=== PATIENT | female | born 1935 | race Caucasian/White ===

== ENCOUNTER 2016-08-31 18:10 | Emergency (ER) | payer MEDICARE, OTHER ==
[2016-08-31] MEDS ORDERED: TYLENOL 325 MG PO ONE (18:36)
[2016-08-31] MEDS ORDERED: ATARAX 25 MG PO ONE (18:36)
[2016-08-31] MEDS ORDERED: TYLENOL 325 MG ONE (18:43)
[2016-08-31] MEDS ORDERED: ATARAX 25 MG ONE (18:44)
[2016-08-31 18:48] LABS: BASOPHIL % 0.4 % (0.0-0.4); Granulocytes % 67.7 % (36.0-66.0); Lymphocytes % 20.7 % (24.0-44.0); Mean Cell Volume 97.1 fl (78-100); Mean Corpuscular Hemoglobin 33.4 pg (26-32); Mean Platelet Volume 9.3 fl (6-9.5); Monocytes % 10.2 % (0.0-12.0); Platelet Count 281 K/mm3 (150-450); Red Blood Count 4.16 M/mm3 (4.1-5.4); Red Cell Distribution Width 12.2 % (11.5-14.0); White Blood Count 5.2 K/mm3 (4.0-10.5)
--- NOTE | 2016-08-31 18:50 | ERPHSYRPT ---
- History of Present Illness Time Seen by Provider: 08/31/16 18:14 Source: patient, family (son with whom she lives) Patient Subjective Stated Complaint: headache today along with high blood pressure. Triage Nursing Assessment: ambulated to room with assist. skin w/d, color normal, resp easy. patient c/o headache. had taken b/p at home with some normal and some hypertensive. took a total of four b/p pills today trying to get bp down. patient appears anxious. Physician History: CC: high blood pressure HX: 81 y/o patient of Dr Vee. She has HTN. She is on lisinopril 2.5mg. She has been checking her blood pressure and it is getting higher and higher. She was scared of stroke. She took 3 extra BP pills thruout the day today. She has some off and on throbbing headache. She initially denied any numbness or tingling. However she later told her son she has some off and on bilateral tingling in her face thruout the past week. No focal weakness. No hx of DM, stroke, or heart disease. Symptoms are mild. Severity: mild Allergies/Adverse Reactions: Sulfa (Sulfonamide Antibiotics) Allergy (Intermediate, Verified 08/31/16 18:24) Home Medications: Lisinopril [Zestril] 2.5 mg PO DAILY 08/31/16 [History] Hx Tetanus, Diphtheria Vaccination/Date Given: No Hx Influenza Vaccination/Date Given: Yes Hx Pneumococcal Vaccination/Date Given: Yes - Review of Systems Constitutional: No Fever, No Chills Eyes: No Vision Changes Ears, Nose, & Throat: No Symptoms Respiratory: No Dyspnea Cardiac: No Chest Pain Abdominal/Gastrointestinal: No Abdominal Pain, No Nausea, No Vomiting Musculoskeletal: No Back Pain, No Neck Pain, No Fall, No Injury Skin: No Rash Neurological: Headache, Parasthesia (bilateral face off and on), No Dizziness, No Focal Weakness All Other Systems: Reviewed and Negative - Past Medical History Pertinent Past Medical History: Yes Neurological History: No Pertinent History ENT History: Cataracts Cardiac History: No Pertinent History Respiratory History: No Pertinent History Endocrine Medical History: No Pertinent History Musculoskeletal History: No Pertinent History GI Medical History: No Pertinent History History: No Pertinent History Psycho-Social History: No Pertinent History Female Reproductive Disorders: No Pertinent History - Past Surgical History Past Surgical History: Yes Neuro Surgical History: No Pertinent History Cardiac: No Pertinent History Respiratory: No Pertinent History Gastrointestinal: No Pertinent History Genitourinary: No Pertinent History Musculoskeletal: Other Female Surgical History: Section - Social History Smoking Status: Current every day smoker How long have you smoked: 60 Exposure to second hand smoke: No Drug Use: none Patient Lives Alone: No (lives at home with son) - Nursing Vital Signs Nursing Vital Signs: Initial Vital Signs Temperature 98.1 F 08/31/16 18:16 Pulse Rate 88 08/31/16 18:16 Respiratory Rate 18 08/31/16 18:16 Blood Pressure 148/98 08/31/16 18:16 O2 Sat by Pulse Oximetry 94 L 08/31/16 18:16 Pain Scale Pain Intensity 5 - Physical Exam General Appearance: alert, thin (frail elderly lady who walked in with her son) Eye Exam: PERRL/EOMI Ears, Nose, Throat Exam: moist mucous membranes Neck Exam: normal inspection, non-tender, supple Respiratory Exam: normal breath sounds Cardiovascular Exam: regular rate/rhythm Gastrointestinal/Abdomen Exam: soft, No tenderness, No distention Back Exam: other (mild kyphosis) Extremity Exam: normal inspection, normal range of motion, No pedal edema Neurologic Exam: alert, oriented x 3, cooperative, sensation nml, No motor deficits Skin Exam: warm, dry, No rash SpO2 Interpretation: normal SpO2: 94 Oxygen Delivery: Room Air - Course Nursing assessment & vital signs reviewed: Yes Ordered Tests: Active Orders 24 hr Category Date Time Status EKG-ER Only STAT Care 08/31/16 18:31 Active IV Insertion STAT Care 08/31/16 18:31 Active CBC W DIFF Stat Lab 08/31/16 18:45 Completed CMP Stat Lab 08/31/16 18:45 Completed PROTIME WITH INR Stat Lab 08/31/16 18:45 Completed PTT Stat Lab 08/31/16 18:45 Completed Medication Summary Discontinued Medications Generic Name Dose Route Start Last Admin Trade Name Freq PRN Reason Stop Dose Admin Acetaminophen 650 mg 08/31/16 18:36 08/31/16 18:47 Tylenol 325 Mg PO 08/31/16 18:37 650 mg STAT ONE Administration Acetaminophen Confirm 08/31/16 18:43 Tylenol 325 Mg Administered 08/31/16 18:44 Dose 650 mg .ROUTE .STK-MED ONE Hydroxyzine HCl 25 mg 08/31/16 18:36 08/31/16 18:47 Atarax 25 Mg PO 08/31/16 18:37 25 mg STAT ONE Administration Hydroxyzine HCl Confirm 08/31/16 18:44 Atarax 25 Mg Administered 08/31/16 18:45 Dose 25 mg .ROUTE .K-MED ONE Lab/Rad Data: Laboratory Result Diagrams 08/31/16 18:45 08/31/16 18:45 Laboratory Results 08/31/16 08/31/16 08/31/16 Range/Units 18:45 18:45 18:45 WBC 5.2 (4.0-10.5) K/mm3 RBC 4.16 (4.1-5.4) M/mm3 Hgb 13.9 (12.0-16.0) gm/dl Hct 40.4 (35-47) % MCV 97.1 (78-100) fl MCH 33.4 H (26-32) pg MCHC 34.4 (32-36) g/dl RDW 12.2 (11.5-14.0) % Plt Count 281 (150-450) K/mm3 MPV 9.3 (6-9.5) fl Gran % 67.7 H (36.0-66.0) % Lymphocytes % 20.7 L (24.0-44.0) % Monocytes % 10.2 (0.0-12.0) % Eosinophils % 1.0 (0.00-5.0) % Basophils % 0.4 (0.0-0.4) % Basophils # 0.02 (0-0.4) INR 0.94 (0.8-3.0) APTT 31.9 (25.3-37.0) SECONDS Sodium 130 L (136-145) mEq/L Potassium 4.2 (3.5-5.1) mEq/L Chloride 93 L (98-107) mEq/L Carbon Dioxide 28.3 (21-32) mEq/L Anion Gap 13.0 (5-15) MEQ/L BUN 13 (9-20) mg/dL Creatinine 0.67 (0.55-1.30) mg/dl Estimated GFR > 60 ML/MIN Glucose 95 (70-110) MG/DL Calcium 9.4 (8.5-10.1) mg/dL Total Bilirubin 0.60 (0.2-1.0) mg/dL AST 18 (15-37) U/L ALT 21 (12-78) U/L Alkaline Phosphatase 68 (46-116) U/L Serum Total Protein 7.3 (6.4-8.2) gm/dL Albumin 3.7 (3.4-5.0) g/dL - Progress Progress Note: 08/31/16 18:50 Explained to pt that she should check BP three times a day and have her son check and record it. She should then take the record to Dr Vee. She was advised to take her lisinopril 2.5mg twice a day and keep her follow up with Dr Vee. APAP/hydrozyzine given here. She initially was fine with plan. She then complained of the bilateral facial numbness. Her exam is nonfocal and symptoms vague. With hx of HTN, PICHARDO CT brain and cxr ordered with labs. She then declined the imaging. 08/31/16 19:19 Pt had medication and she feels much better. Ambualted well in the hallway. She is talkative and BP is improved. Discussed instructions. She declines further testing. Counseled pt/family regarding: diagnosis, need for follow-up, rad results - Departure Time of Disposition: 19:20 Departure Disposition: Home Clinical Impression: High blood pressure, Headache, Anxiety Condition: Stable Critical Care Time: No Referrals: JOSE DANIEL LOCKHART [CONSULTING PHYSICIAN] - AMBAR VEE MD [Primary Care Provider] - Instructions: High Blood Pressure, Headache, Prevent Falls Additional Instructions: Check your blood pressure three times a day and record the number to take to Dr Vee next week for recheck. Take your lisinopril twice a day. Take care not to fall. Return for problems or concerns.
[2016-08-31 19:04] LABS: INR 0.94 (0.8-3.0); PROTIME 10.6 SECONDS (9.95-12.35)
[2016-08-31 19:06] LABS: PTT 31.9 SECONDS (25.3-37.0)
[2016-08-31 19:12] LABS: ALBUMIN 3.7 g/dL (3.4-5.0); ALKALINE PHOSPHATASE 68 U/L (46-116); BLOOD UREA NITROGEN 13 mg/dL (9-20); CHLORIDE 93 mEq/L (98-107); Carbon Dioxide 28.3 mEq/L (21-32); Glucose 95 MG/DL (70-110); Potassium 4.2 mEq/L (3.5-5.1); SGOT/AST 18 U/L (15-37); SGPT/ALT 21 U/L (12-78); SODIUM 130 mEq/L (136-145); Total Protein 7.3 gm/dL (6.4-8.2)
[2016-08-31 19:23] VITALS: BP 134/68; PULSE 68; O2SAT 97
== END 2016-08-31 19:23 | disposition home or self-care (01) ==
LOC: SUPCPDRO 18:10 → ED 18:10
DX: I10 Essential (primary) hypertension (principal); R51 Headache; F41.9 Anxiety disorder, unspecified
CPT/HCPCS: 36415; 80053; 85025; 85610; 85730; 99284; A9270-GY

== ENCOUNTER 2019-10-31 15:29 | Emergency (ER) | payer MEDICARE, OTHER ==
--- NOTE | 2019-10-31 16:02 | ERPHSYRPT ---
- History of Present Illness Time Seen by Provider: 10/31/19 15:59 Source: patient, family Exam Limitations: no limitations Patient Subjective Stated Complaint: pt here for constipation, she is unsure of last BM, she has tried laxative but unsure of what she has taken Triage Nursing Assessment: pt alert, resp easy, skin w/d/p. face mask on place, abd soft Physician History: pt here for constipation, she is unsure of last BM, she has tried laxative but unsure of what she has taken. According to son, Last bowel movement was 2 weeks ago Associated Symptoms: denies symptoms Allergies/Adverse Reactions: Sulfa (Sulfonamide Antibiotics) Allergy (Intermediate, Verified 10/31/19 15:41) Home Medications: lisinopriL [Zestril] 2.5 mg PO DAILY 08/31/16 [History] Hx Tetanus, Diphtheria Vaccination/Date Given: No Hx Influenza Vaccination/Date Given: Yes Hx Pneumococcal Vaccination/Date Given: Yes Immunizations Up to Date: Yes Travel Risk - International Travel Have you traveled outside of the country in past 3 weeks: No - Coronavirus Screening Are you exhibiting any of the following symptoms?: No Close contact with a COVID-19 positive Pt in past 14-21 Days: No - Review of Systems Constitutional: No Symptoms Eyes: No Symptoms Ears, Nose, & Throat: No Symptoms Respiratory: No Symptoms Cardiac: No Symptoms Abdominal/Gastrointestinal: Constipation Genitourinary Symptoms: No Symptoms Musculoskeletal: No Symptoms - Past Medical History Pertinent Past Medical History: Yes Neurological History: No Pertinent History ENT History: Cataracts Cardiac History: No Pertinent History Respiratory History: No Pertinent History Endocrine Medical History: No Pertinent History Musculoskeletal History: No Pertinent History GI Medical History: No Pertinent History History: No Pertinent History Psycho-Social History: No Pertinent History Female Reproductive Disorders: No Pertinent History - Past Surgical History Past Surgical History: Yes Neuro Surgical History: No Pertinent History Cardiac: No Pertinent History Respiratory: No Pertinent History Gastrointestinal: No Pertinent History Genitourinary: No Pertinent History Musculoskeletal: Other Female Surgical History: Section Other Surgical History: 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 - Social History Smoking Status: Current every day smoker How long have you smoked: 60 Exposure to second hand smoke: No Drug Use: none Patient Lives Alone: No (lives at home with son) - Female History Hx Last Menstrual Period: psot Hx Now: No - Nursing Vital Signs Nursing Vital Signs: Initial Vital Signs Temperature 97.6 F 10/31/19 15:34 Pulse Rate 103 H 10/31/19 15:34 Respiratory Rate 18 10/31/19 15:34 Blood Pressure 112/64 10/31/19 15:34 O2 Sat by Pulse Oximetry 94 L 10/31/19 15:34 Pain Scale Pain Intensity 3 - Physical Exam General Appearance: no apparent distress Eye Exam: PERRL/EOMI Ears, Nose, Throat Exam: normal ENT inspection Neck Exam: normal inspection Respiratory Exam: normal breath sounds Cardiovascular Exam: regular rate/rhythm Gastrointestinal/Abdomen Exam: soft, normal bowel sounds Pelvic Exam: not done Rectal Exam: deferred Back Exam: normal inspection Extremity Exam: normal inspection Neurologic Exam: alert, oriented x 3 SpO2: 94 - Course Nursing assessment & vital signs reviewed: Yes - Radiology Exams Abdomen X-ray Interpretation: Reviewed by me, Negative (constipated bowel) Ordered Tests: Active Orders 24 hr Category Date Time Status KUB Stat Exams 10/31/19 Ordered Medication Summary Discontinued Medications Generic Name Dose Route Start Last Admin Trade Name Juan PRN Reason Stop Dose Admin Magnesium Citrate 150 ml 10/31/19 16:29 Citroma 296 Ml PO 10/31/19 16:30 1XONLY ONE - Progress Progress: improved Progress Note: 10/31/19 16:34 Soap suds enema and 150 ml magnesium citrate given, patient has some good results with this treatment. Counseled pt/family regarding: diagnosis, need for follow-up, rad results - Departure Departure Disposition: Home Clinical Impression: Constipation by delayed colonic transit Condition: Stable Critical Care Time: No Referrals: AMBAR VEE MD [Primary Care Provider] - Follow Up with PCP/3 days Instructions: Constipation, Adult (DC) Additional Instructions: Discharge/Care Plan JAMA LANE was seen on 10/31/19 in the Emergency Room. The patient was counseled regarding Diagnosis,Lab results, Imaging studies, need for follow up and when to return to the Emergency Room. Prescriptions given: Discharge Note I have spoken with the patient and/or caregivers. I have explained the patient's condition, diagnosis and treatment plan based on the information available to me at this time. I have answered the patient's and/or caregiver's questions and ad dressed any concerns. The patient and/or caregivers have as good understanding of the patient's diagnosis, condition and treatment plan as can be expected at this point. The vital signs have been stable. The patient's condition is stable and appropriate for discharge from the emergency department. The patient will pursue further outpatient evaluation with the primary care physician or other designated or consulting physician as outlined in the discharge instructions. The patient and/or caregivers are agreeable to this plan of care and follow-up instructions have been explained in detail. The patient and/or caregivers have received these instruction. The patient/and or caregivers are aware that any significant change in condition or worsening of symptoms should prompt an immediate return to this or the closest emergency department or call 911. [address] was seen on 10/31/19 n the Emergency Room. At that time you were treated for an emergent condition, during your visit Laboratory, Radiology and/or other procedures may have been ordered. It is very important that you follow-up with your Primary Care Physician AMBAR VEE within the next 24-48 hours to review your Emergency Room visit and the final results of testing that was ordered. Some test results such as Urine Cultures, Blood Cultures, and other cultures if ordered will not be finalized for 24-48 hours. If you do not have a Primary Care Provider please call the medical records department at [phone] ext [phone] to obtain a copy of your results or you may sign into our patient portal to obtain these results by visiting us @ [email or web address] and completing the following steps: 1. Click on the Patient Portal link 2. Click the Patient Self Enrollment Link to complete the enrollment form and entering your 3. Once the enrollment form is completed you will receive an email with a tempor dale ID and password at the email address you provided. 4. Next choose a user name and password. Your user name must be at least 4 characters long and your password must be at least 4 characters long. 5. Choose a security question from the list and provide your answer to the question. If you already have signed into the Health Portal you may access your Health Care Information 02/09 by the following steps: 1. Login to our website @ [email or web address] 2. Enter your original user name and password. FAQS The [facility] Health Portal is an online tool that contains your Lab Results, Radiology Reports, Visit History, Discharge Instructions and Health Summary Lab and Radiology Results will not be available for 72 hours on the portal. The Portal is a secure site, passwords are encryted and URLs are re-written so they cannot be copied and pasted. You and authorized family members are the only ones who can access your Portal. Also there is a timeout feature that protects your information if you leave the Portal page open. If you have technical difficulty please use the Contact Us link on the page this will allow you to submit any questions you have regarding the Portal or you may contact the Medical Record Department at [phone] ext [phone]. Prescriptions: Linaclotide [Linzess] 72 mcg PO BID #20 capsule
[2019-10-31] MEDS ORDERED: CITROMA 296 ML PO ONE (16:29)
[2019-10-31] MEDS ORDERED: CITROMA 296 ML ONE (16:34)
[2019-10-31 17:00] VITALS: BP 120/50; PULSE 78; O2SAT 98
--- NOTE | 2019-10-31 19:18 | XRAY ---
Indication: Constipation. Comparison: None KUB nonacute and nonobstructed with mild rectal fecal debris. Heavy scattered vascular calcifications. Osseous structures intact with osteopenia, moderate multilevel degenerative spondylosis, and mild dextroscoliosis centered at L3. Lung bases are clear. Impression: Nonacute KUB with chronic features.
== END 2019-10-31 17:00 | disposition home or self-care (01) ==
LOC: ED 15:29
DX: K59.01 Slow transit constipation (principal)
CPT/HCPCS: 74018; 99283; A9270-GY

== ENCOUNTER 2019-11-03 18:59 | Observation (INO) | payer MEDICARE, OTHER ==
--- NOTE | 2019-11-03 19:06 | ERPHSYRPT ---
- History of Present Illness Time Seen by Provider: 11/03/19 19:06 Historian: patient Exam Limitations: no limitations Physician History: This is an 84-year-old white female patient of Dr. Vee returns to the emergency department with complaint of constipation for 2 to 3 weeks. Patient was seen on 10/31/2019 in this emergency department. The x-ray reading from the emergency room physician at that time said constipated bowel picture. Patient is also to be reported as having good results with soapsuds enema. Patient states she has had no further bowel movements in a few days. Patient's son discussed with the mixed signal design engineer in the emergency department that he demands that his mother be admitted for evaluation and management. Patient denies cough, she denies chest pain, she denies fever, she denies flulike symptoms. Timing/Duration: week(s) (2-3) Quality: aching Abdominal Pain Onset Location: generalized abdomen Severity of Pain-Max: moderate Severity of Pain-Current: mild Modifying Factors: Improves With: other (Constipation) Associated Symptoms: other (Constipation), No diarrhea Previous symptoms: same symptoms as today Allergies/Adverse Reactions: Sulfa (Sulfonamide Antibiotics) Allergy (Intermediate, Verified 11/03/19 19:24) Home Medications: lisinopriL [Zestril] 2.5 mg PO DAILY 08/31/16 [History] Hx Tetanus, Diphtheria Vaccination/Date Given: No Hx Influenza Vaccination/Date Given: Yes Hx Pneumococcal Vaccination/Date Given: Yes Travel Risk - International Travel Have you traveled outside of the country in past 3 weeks: No - Coronavirus Screening Are you exhibiting any of the following symptoms?: No Close contact with a COVID-19 positive Pt in past 14-21 Days: No - Past Medical History Pertinent Past Medical History: Yes Neurological History: No Pertinent History ENT History: Cataracts Cardiac History: No Pertinent History Respiratory History: No Pertinent History Endocrine Medical History: No Pertinent History Musculoskeletal History: No Pertinent History GI Medical History: No Pertinent History History: No Pertinent History Psycho-Social History: No Pertinent History Female Reproductive Disorders: No Pertinent History - Past Surgical History Past Surgical History: Yes Neuro Surgical History: No Pertinent History Cardiac: No Pertinent History Respiratory: No Pertinent History Gastrointestinal: No Pertinent History Genitourinary: No Pertinent History Musculoskeletal: Other Female Surgical History: Section Other Surgical History: 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 - Social History Smoking Status: Current every day smoker How long have you smoked: 60 Exposure to second hand smoke: No Drug Use: none Patient Lives Alone: No (lives at home with son) - Nursing Vital Signs Nursing Vital Signs: Initial Vital Signs Temperature 98.0 F 11/03/19 19:11 Pulse Rate 74 11/03/19 19:11 Respiratory Rate 20 11/03/19 19:11 Blood Pressure 139/76 11/03/19 19:11 O2 Sat by Pulse Oximetry 97 11/03/19 19:11 Pain Scale Pain Intensity 2 - Physical Exam General Appearance: no apparent distress, alert Eye Exam: PERRL/EOMI Ears, Nose, Throat Exam: normal ENT inspection, moist mucous membranes Neck Exam: normal inspection, non-tender, supple, full range of motion Respiratory Exam: normal breath sounds, lungs clear, airway intact, No chest tenderness, No respiratory distress Cardiovascular Exam: regular rate/rhythm, normal heart sounds, normal peripheral pulses Gastrointestinal/Abdomen Exam: soft, normal bowel sounds, No tenderness, No guarding Pelvic Exam: not done Rectal Exam: not done Back Exam: normal inspection, normal range of motion, No CVA tenderness, No vertebral tenderness Extremity Exam: normal inspection, normal range of motion, pelvis stable Neurologic Exam: alert, oriented x 3, cooperative, cnc mill and lathe operator II-XII nml as tested, normal mood/affect, sensation nml Skin Exam: normal color, warm, dry Lymphatic Exam: No adenopathy SpO2 Interpretation: normal O2 Delivery: Room Air Ordered Tests: Active Orders 24 hr Category Date Time Status IV Insertion STAT Care 11/03/19 19:13 Active ABDOMEN AND PELVIS W/0 CONTRAS [CT] Stat Exams 11/03/19 19:06 Taken AMYLASE Stat Lab 11/03/19 19:39 Completed CBC W DIFF Stat Lab 11/03/19 19:39 Completed CMP Stat Lab 11/03/19 19:39 Completed CULTURE,URINE Stat Lab 11/03/19 19:59 Received LIPASE Stat Lab 11/03/19 19:39 Completed Lactic Acid Stat Lab 11/03/19 19:30 Completed UA W/RFX UR CULTURE Stat Lab 11/03/19 19:59 Completed Transfer Order Routine Transfer 11/03/19 Ordered Medication Summary Generic Name Dose Route Start Last Admin Trade Name Freq PRN Reason Stop Dose Admin Ceftriaxone Sodium/Dextrose 1 g in 50 mls @ 100 mls/hr 11/03/19 20:14 Rocephin 1 Gm-D5w 50 Ml Bag IV 11/03/19 20:43 STAT STA Lab/Rad Data: Laboratory Result Diagrams 11/03/19 19:39 11/03/19 19:39 Laboratory Results 11/03/19 11/03/19 11/03/19 Range/Units 19:59 19:39 19:39 WBC 6.4 (4.0-10.5) K/mm3 RBC 4.03 L (4.1-5.4) M/mm3 Hgb 13.4 (12.0-16.0) gm/dl Hct 40.3 (35-47) % MCV 100.0 (78-100) fl MCH 33.3 H (26-32) pg MCHC 33.3 (32-36) g/dl RDW 13.1 (11.5-14.0) % Plt Count 255 (150-450) K/mm3 MPV 10.5 (7.5-11.0) fl Gran % 71.0 H (36.0-66.0) % Eos # (Auto) 0.04 (0-0.5) Absolute Lymphs (auto) 1.02 (1.0-4.6) Absolute Monos (auto) 0.79 (0.0-1.3) Lymphocytes % 15.9 L (24.0-44.0) % Monocytes % 12.3 H (0.0-12.0) % Eosinophils % 0.6 (0.00-5.0) % Basophils % 0.2 (0.0-0.4) % Absolute Granulocytes 4.54 (1.4-6.9) Basophils # 0.01 (0-0.4) Sodium 127 L (137-145) mmol/L Potassium 4.0 (3.5-5.1) mmol/L Chloride 94 L (98-107) mmol/L Carbon Dioxide 27 (22-30) mmol/L Anion Gap 9.4 (5-15) MEQ/L BUN 17 (7-17) mg/dL Creatinine 0.77 (0.52-1.04) mg/dL Estimated GFR > 60.0 ML/MIN Glucose 96 (74-106) mg/dL Lactic Acid (0.4-2.0) Calcium 9.3 (8.4-10.2) mg/dL Total Bilirubin 0.50 (0.2-1.3) mg/dL AST 29 (14-36) U/L ALT 19 (0-35) U/L Alkaline Phosphatase 64 (38-126) U/L Serum Total Protein 7.0 (6.3-8.2) g/dL Albumin 4.1 (3.5-5.0) g/dL Amylase 76 (30-110) U/L Lipase 50 (23-300) U/L Urine Color YELLOW (YELLOW) Urine Appearance SLIGHTLY CLOUDY (CLEAR) Urine pH 5.0 (5-6) Ur Specific [place] 1.016 (1.005-1.025) Urine Protein 100 (Negative) Urine Ketones NEGATIVE (NEGATIVE) Urine Blood NEGATIVE (0-5) Raymond/ul Urine Nitrite NEGATIVE (NEGATIVE) Urine Bilirubin NEGATIVE (NEGATIVE) Urine Urobilinogen NEGATIVE (0-1) mg/dL Ur Leukocyte Esterase TRACE (NEGATIVE) Urine WBC (Auto) 16-25 (0-5) /HPF Urine RBC (Auto) 0-2 (0-2) /HPF U Hyaline Cast (Auto) 3-5 (0-2) /LPF U Epithel Cells (Auto) RARE (FEW) /HPF Urine Bacteria (Auto) MODERATE (NEGATIVE) /HPF Urine Mucus (Auto) SLIGHT (NEGATIVE) /HPF Urine Culture Reflexed YES (NO) Urine Glucose NEGATIVE (NEGATIVE) mg/dL 11/03/19 Range/Units 19:30 WBC (4.0-10.5) K/mm3 RBC (4.1-5.4) M/mm3 Hgb (12.0-16.0) gm/dl Hct (35-47) % MCV (78-100) fl MCH (26-32) pg MCHC (32-36) g/dl RDW (11.5-14.0) % Plt Count (150-450) K/mm3 MPV (7.5-11.0) fl Gran % (36.0-66.0) % Eos # (Auto) (0-0.5) Absolute Lymphs (auto) (1.0-4.6) Absolute Monos (auto) (0.0-1.3) Lymphocytes % (24.0-44.0) % Monocytes % (0.0-12.0) % Eosinophils % (0.00-5.0) % Basophils % (0.0-0.4) % Absolute Granulocytes (1.4-6.9) Basophils # (0-0.4) Sodium (137-145) mmol/L Potassium (3.5-5.1) mmol/L Chloride (98-107) mmol/L Carbon Dioxide (22-30) mmol/L Anion Gap (5-15) MEQ/L BUN (7-17) mg/dL Creatinine (0.52-1.04) mg/dL Estimated GFR ML/MIN Glucose (74-106) mg/dL Lactic Acid 1.5 (0.4-2.0) Calcium (8.4-10.2) mg/dL Total Bilirubin (0.2-1.3) mg/dL AST (14-36) U/L ALT (0-35) U/L Alkaline Phosphatase (38-126) U/L Serum Total Protein (6.3-8.2) g/dL Albumin (3.5-5.0) g/dL Amylase (30-110) U/L Lipase (23-300) U/L Urine Color (YELLOW) Urine Appearance (CLEAR) Urine pH (5-6) Ur Specific [place] (1.005-1.025) Urine Protein (Negative) Urine Ketones (NEGATIVE) Urine Blood (0-5) Raymond/ul Urine Nitrite (NEGATIVE) Urine Bilirubin (NEGATIVE) Urine Urobilinogen (0-1) mg/dL Ur Leukocyte Esterase (NEGATIVE) Urine WBC (Auto) (0-5) /HPF Urine RBC (Auto) (0-2) /HPF U Hyaline Cast (Auto) (0-2) /LPF U Epithel Cells (Auto) (FEW) /HPF Urine Bacteria (Auto) (NEGATIVE) /HPF Urine Mucus (Auto) (NEGATIVE) /HPF Urine Culture Reflexed (NO) Urine Glucose (NEGATIVE) mg/dL - Progress Progress: unchanged Progress Note: 11/03/19 20:34 Medical decision making: I reviewed the patient history and condition with Dr. Vee, patient's primary care provider. The patient's son is adamant about patient being admitted in the hospital for management. The patient is mildly confused, she does have a urinary tract infection and she complains of consti pation. The patient's CAT scan of her abdomen and pelvis shows left nephrolithiasis, colonic diverticulosis without acute diverticulitis. There is no signs of bowel obstruction. There is no acute intra-abdominal abnormality. Because of the above symptoms and complaints we will admit the patient for mild IV hydration, intravenous antibiotics and bowel hygiene. Discussed with : Kirti Counseled pt/family regarding: lab results, diagnosis, rad results - Departure Departure Disposition: Home Clinical Impression: Confusion, UTI (urinary tract infection), Constipation Condition: Stable Critical Care Time: No Referrals: AMBAR VEE MD [Primary Care Provider] -
[2019-11-03 19:44] LABS: Absolute Neutrophil Ct (ANC) 4.54 (1.4-6.9); BASOPHIL % 0.2 % (0.0-0.4); Basophil (Absolute #) 0.01 (0-0.4); Eosinophil % 0.6 % (0.00-5.0); Eosinophil (Absolute #) 0.04 (0-0.5); Hematocrit 40.3 % (35-47); Hemoglobin 13.4 gm/dl (12.0-16.0); Lymphocyte (Absolute #) 1.02 (1.0-4.6); Lymphocytes % 15.9 % (24.0-44.0); Mean Corpuscular Hemoglobin 33.3 pg (26-32); Mean Corpuscular Hgb Concent. 33.3 g/dl (32-36); Mean Platelet Volume 10.5 fl (7.5-11.0); Monocyte (Absolute #) 0.79 (0.0-1.3); Monocytes % 12.3 % (0.0-12.0); Platelet Count 255 K/mm3 (150-450); Red Blood Count 4.03 M/mm3 (4.1-5.4); Red Cell Distribution Width 13.1 % (11.5-14.0); White Blood Count 6.4 K/mm3 (4.0-10.5)
[2019-11-03 19:54] LABS: ALBUMIN 4.1 g/dL (3.5-5.0); ALKALINE PHOSPHATASE 64 U/L (38-126); AMYLASE 76 U/L (30-110); ANION GAP 9.4 MEQ/L (5-15); BLOOD UREA NITROGEN 17 mg/dL (7-17); CHLORIDE 94 mmol/L (98-107); Calcium 9.3 mg/dL (8.4-10.2); Carbon Dioxide 27 mmol/L (22-30); Creatinine 1 0.77 mg/dL (0.52-1.04); EST GLOMERULAR FILTRATION RATE > 60.0 ML/MIN; Glucose 96 mg/dL (74-106); LIPASE 50 U/L (23-300); SGOT/AST 29 U/L (14-36); SGPT/ALT 19 U/L (0-35); SODIUM 127 mmol/L (137-145)
[2019-11-03 20:07] LABS: Appearance SLIGHTLY CLOUDY (CLEAR); Bacteria MODERATE /HPF (NEGATIVE); Bilirubin NEGATIVE (NEGATIVE); Blood NEGATIVE Ery/ul (0-5); Epithelial Cells RARE /HPF (FEW); Glucose NEGATIVE (NEGATIVE); Ketones NEGATIVE (NEGATIVE); Leukocyte Esterase TRACE (NEGATIVE); Mucus SLIGHT /HPF (NEGATIVE); Nitrite NEGATIVE (NEGATIVE); Protein,Urine Dip 100 (Negative); RBC 0-2 /HPF (0-2); Specific Gravity 1.016 (1.005-1.025); Urobilinogen NEGATIVE mg/dL (0-1)
[2019-11-03] MEDS ORDERED: ROCEPHIN 1 Gm-D5w 50 ml Bag** 1 G/50 ML IVPB IV STA (20:14)
[2019-11-03] MEDS ORDERED: TYLENOL 325 MG PO PRN (21:01)
[2019-11-03] MEDS ORDERED: Zofran 4 MG/2 ML VIAL IV PRN (21:01)
[2019-11-03] MEDS ORDERED: ROCEPHIN 1 Gm-D5w 50 ml Bag** 1 G/50 ML IVPB IV ONE (21:26)
[2019-11-03] MEDS: Sodium Chloride 0.9% 1000 ML 1,000 ML IV SCH (22:25)
--- NOTE | 2019-11-04 09:21 | PCM.HP ---
History of Present Illness - Chief Complaint Chief Complaint: confusion and abdominal pain History of Present Illness: is a 84 year old female.This is an 84-year-old white female patient of Dr. Cruz returns to the emergency department with complaint of constipation for 2 to 3 weeks. Patient was seen on 10/31/2019 in this emergency department. The x-ray reading from the emergency room physician at that time said constipated bowel picture. Patient is also to be reported as having good results with soapsuds enema. Patient states she has had no further bowel movements in a few days. Patient's son discussed with the construction executive in the emergency department that he demands that his mother be admitted for evaluation and management. Patient denies cough, she denies chest pain, she denies fever, she denies flulike symptoms. Timing/Duration: week(s) (2-3) Quality: aching Abdominal Pain Onset Location: generalized abdomen Severity of Pain-Max: moderate Severity of Pain-Current: mild Modifying Factors: Improves With: other (Constipation) Associated Symptoms: other (Constipation), No diarrhea Previous symptoms: same symptoms as today - Review of Systems Constitutional: No Fever, No Chills Eyes: No Symptoms Ears, Nose, & Throat: No Symptoms Respiratory: No Cough, No Short Of Breath Cardiac: No Chest Pain, No Edema, No Syncope Abdominal/Gastrointestinal: Abdominal Pain, Constipation, No Nausea, No Vomiting, No Diarrhea Genitourinary Symptoms: No Dysuria Musculoskeletal: No Back Pain, No Neck Pain Skin: No Rash Neurological: No Dizziness, No Focal Weakness, No Sensory Changes Psychological: No Symptoms Endocrine: No Symptoms Hematologic/Lymphatic: No Symptoms Immunological/Allergic: No Symptoms Medications & Allergies Home Medications: Home Medication List Losartan Potassium 25 mg PO DAILY 11/03/19 [History Confirmed 11/03/19] Naloxegol Oxalate [Movantik] 1 tab PO DAILY 11/03/19 [History Confirmed 11/03/19] Allergies/Adverse Reactions: Allergies Allergy/AdvReac Type Severity Reaction Status Date / Time Sulfa (Sulfonamide Allergy Intermediate Verified 11/03/19 19:24 Antibiotics) - Past Medical History Past Medical History: Yes Neurological History: No Pertinent History ENT History: Cataracts Cardiac History: Hypertension Respiratory History: No Pertinent History Endocrine Medical History: No Pertinent History Musculoskelatal History: No Pertinent History GI Medical History: No Pertinent History History: No Pertinent History Pyscho-Social History: No Pertinent History Reproductive Disorders: No Pertinent History - Female History Are you now?: No - Past Surgical History Past Surgical History: Yes Neuro Surgical History: No Pertinent History Cardiac History: No Pertinent History Respiratory Surgery: No Pertinent History GI Surgical History: No Pertinent History Genitourinary Surgical Hx: No Pertinent History Musculskeletal Surgical Hx: Other Female Surgical History: Section Other Surgical History: 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 - Social History Smoking Status: Light tobacco smoker How long have you smoked: 50+ years Exposure to second hand smoke: No Alcohol: None Drug Use: none - Physical Exam Vital Signs: Vital Signs - 24 hr Temp Pulse Resp BP Pulse Ox 11/04/19 07:15 98.3 F 60 16 93/54 91 L 11/04/19 04:00 98.2 F 65 16 92/48 95 11/03/19 22:03 97.8 F 62 18 129/61 93 L 11/03/19 21:15 74 18 122/87 93 L 11/03/19 20:00 74 18 125/64 94 L 11/03/19 19:11 98.0 F 74 20 139/76 97 General Appearance: no apparent distress, alert Neurologic Exam: alert, oriented x 3, cooperative, normal mood/affect, nml cerebellar function, nml station & gait, sensation nml, No motor deficits Eye Exam: PERRL/EOMI, eyes nml inspection Ears, Nose, Throat Exam: normal ENT inspection, TMs normal, pharynx normal, moist mucous membranes Neck Exam: normal inspection, non-tender, supple, full range of motion Respiratory Exam: normal breath sounds, lungs clear, No respiratory distress Cardiovascular Exam: regular rate/rhythm, normal heart sounds, normal peripheral pulses Gastrointestinal/Abdomen Exam: soft, normal bowel sounds, No tenderness, No mass Back Exam: normal inspection, normal range of motion, No CVA tenderness, No vertebral tenderness Extremity Exam: normal inspection, normal range of motion, pelvis stable Skin Exam: normal color, warm, dry, No rash Lymphatic Exam: No adenopathy Results - Labs Lab/Micro Results: Lab Results-Last 24 Hours 11/03/19 11/03/19 11/03/19 Range/Units 19:30 19:39 19:39 WBC 6.4 (4.0-10.5) K/mm3 RBC 4.03 L (4.1-5.4) M/mm3 Hgb 13.4 (12.0-16.0) gm/dl Hct 40.3 (35-47) % MCV 100.0 (78-100) fl MCH 33.3 H (26-32) pg MCHC 33.3 (32-36) g/dl RDW 13.1 (11.5-14.0) % Plt Count 255 (150-450) K/mm3 MPV 10.5 (7.5-11.0) fl Gran % 71.0 H (36.0-66.0) % Eos # (Auto) 0.04 (0-0.5) Absolute Lymphs (auto) 1.02 (1.0-4.6) Absolute Monos (auto) 0.79 (0.0-1.3) Lymphocytes % 15.9 L (24.0-44.0) % Monocytes % 12.3 H (0.0-12.0) % Eosinophils % 0.6 (0.00-5.0) % Basophils % 0.2 (0.0-0.4) % Absolute Granulocytes 4.54 (1.4-6.9) Basophils # 0.01 (0-0.4) Sodium 127 L (137-145) mmol/L Potassium 4.0 (3.5-5.1) mmol/L Chloride 94 L (98-107) mmol/L Carbon Dioxide 27 (22-30) mmol/L Anion Gap 9.4 (5-15) MEQ/L BUN 17 (7-17) mg/dL Creatinine 0.77 (0.52-1.04) mg/dL Estimated GFR > 60.0 ML/MIN Glucose 96 (74-106) mg/dL Lactic Acid 1.5 (0.4-2.0) Calcium 9.3 (8.4-10.2) mg/dL Total Bilirubin 0.50 (0.2-1.3) mg/dL AST 29 (14-36) U/L ALT 19 (0-35) U/L Alkaline Phosphatase 64 (38-126) U/L Serum Total Protein 7.0 (6.3-8.2) g/dL Albumin 4.1 (3.5-5.0) g/dL Amylase 76 (30-110) U/L Lipase 50 (23-300) U/L Urine Color (YELLOW) Urine Appearance (CLEAR) Urine pH (5-6) Ur Specific [place] (1.005-1.025) Urine Protein (Negative) Urine Ketones (NEGATIVE) Urine Blood (0-5) Raymond/ul Urine Nitrite (NEGATIVE) Urine Bilirubin (NEGATIVE) Urine Urobilinogen (0-1) mg/dL Ur Leukocyte Esterase (NEGATIVE) Urine WBC (Auto) (0-5) /HPF Urine RBC (Auto) (0-2) /HPF U Hyaline Cast (Auto) (0-2) /LPF U Epithel Cells (Auto) (FEW) /HPF Urine Bacteria (Auto) (NEGATIVE) /HPF Urine Mucus (Auto) (NEGATIVE) /HPF Urine Culture Reflexed (NO) Urine Glucose (NEGATIVE) mg/dL 11/03/19 Range/Units 19:59 WBC (4.0-10.5) K/mm3 RBC (4.1-5.4) M/mm3 Hgb (12.0-16.0) gm/dl Hct (35-47) % MCV (78-100) fl MCH (26-32) pg MCHC (32-36) g/dl RDW (11.5-14.0) % Plt Count (150-450) K/mm3 MPV (7.5-11.0) fl Gran % (36.0-66.0) % Eos # (Auto) (0-0.5) Absolute Lymphs (auto) (1.0-4.6) Absolute Monos (auto) (0.0-1.3) Lymphocytes % (24.0-44.0) % Monocytes % (0.0-12.0) % Eosinophils % (0.00-5.0) % Basophils % (0.0-0.4) % Absolute Granulocytes (1.4-6.9) Basophils # (0-0.4) Sodium (137-145) mmol/L Potassium (3.5-5.1) mmol/L Chloride (98-107) mmol/L Carbon Dioxide (22-30) mmol/L Anion Gap (5-15) MEQ/L BUN (7-17) mg/dL Creatinine (0.52-1.04) mg/dL Estimated GFR ML/MIN Glucose (74-106) mg/dL Lactic Acid (0.4-2.0) Calcium (8.4-10.2) mg/dL Total Bilirubin (0.2-1.3) mg/dL AST (14-36) U/L ALT (0-35) U/L Alkaline Phosphatase (38-126) U/L Serum Total Protein (6.3-8.2) g/dL Albumin (3.5-5.0) g/dL Amylase (30-110) U/L Lipase (23-300) U/L Urine Color YELLOW (YELLOW) Urine Appearance SLIGHTLY CLOUDY (CLEAR) Urine pH 5.0 (5-6) Ur Specific [place] 1.016 (1.005-1.025) Urine Protein 100 (Negative) Urine Ketones NEGATIVE (NEGATIVE) Urine Blood NEGATIVE (0-5) Raymond/ul Urine Nitrite NEGATIVE (NEGATIVE) Urine Bilirubin NEGATIVE (NEGATIVE) Urine Urobilinogen NEGATIVE (0-1) mg/dL Ur Leukocyte Esterase TRACE (NEGATIVE) Urine WBC (Auto) 16-25 (0-5) /HPF Urine RBC (Auto) 0-2 (0-2) /HPF U Hyaline Cast (Auto) 3-5 (0-2) /LPF U Epithel Cells (Auto) RARE (FEW) /HPF Urine Bacteria (Auto) MODERATE (NEGATIVE) /HPF Urine Mucus (Auto) SLIGHT (NEGATIVE) /HPF Urine Culture Reflexed YES (NO) Urine Glucose NEGATIVE (NEGATIVE) mg/dL - Radiology Impressions Radiology Exams & Impressions: Radiology Procedures Category Date Time Status ABDOMEN AND PELVIS W/0 CONTRAS [CT] Stat Exams 11/03/19 19:06 Taken Assessment/Plan (1) UTI (urinary tract infection) Current Visit: Yes Status: Acute Qualifiers: Urinary tract infection type: acute pyelonephritis Qualified Code(s): N10 - Acute pyelonephritis Code(s): N39.0 - URINARY TRACT INFECTION, SITE NOT SPECIFIED (2) Confusion Current Visit: Yes Status: Acute Code(s): R41.0 - DISORIENTATION, UNSPECIFIED (3) Constipation Current Visit: Yes Status: Acute Qualifiers: Constipation type: slow transit constipation Qualified Code(s): K59.01 - Slow transit constipation Code(s): K59.00 - CONSTIPATION, UNSPECIFIED (4) Hyponatremia Current Visit: Yes Status: Acute Code(s): E87.1 - HYPO-OSMOLALITY AND HYPONATREMIA
[2019-11-04] MEDS ORDERED: MEDICATION INTERVENTION PO SCH (09:30)
[2019-11-04] MEDS: Cozaar 50 MG PO SCH (09:42)
[2019-11-04] MEDS ORDERED: ROCEPHIN 1 Gm-D5w 50 ml Bag** 1 G/50 ML IVPB IV SCH ×2 (10:00→22:00)
[2019-11-04] MEDS ORDERED: NALOXEGOL OXALATE PO SCH (10:00)
--- NOTE | 2019-11-04 13:30 | XRAY ---
Exam: CT of the abdomen and pelvis without IV contrast from 11/03/2019. CTDI: 2.53 mGy Comparison: None. Indication: 84-year-old female with constipation and abdominal discomfort. Technique: Non-IV contrast axial images were obtained through the abdomen and pelvis. No oral contrast was given. Reconstructed coronal and sagittal images were created and reviewed. Findings: The CT director geophysical laboratory images reveal marked hyperinflation of the lung guevara consistent with advanced COPD. I see a mild mid lumbar rotary dextroscoliosis. There is also slight convexity of the lower mid thoracic spine toward the left. The lung bases reveal no active disease. Minimal curvilinear atelectasis/scarring is seen at the posterior medial right lung base and posterior left lung base. The patient is noted to be quite thin with a paucity of intraperitoneal fat which crowds the soft tissue structures. The liver appears grossly unremarkable. No obvious liver mass or intrahepatic biliary duct distention is seen. The gallbladder is mildly distended and reveals no dense calcifications within it. The spleen is relatively small and reveals some scattered calcified granulomas. The pancreas appears grossly unremarkable. No gross adrenal gland abnormality is seen. The right kidney has a more transverse axis than usual measuring about 9.4 cm in greatest length on sagittal image #63. The left kidney measures about 10.3 cm in length. No hydronephrosis is seen. There appears to be a 3 mm nonobstructing stone within the medial aspect of the upper pole of the left kidney on coronal image #73 and axial image #14. A mild extrarenal pelvis is seen on the left. No hydronephrosis is seen. It is difficult to follow the ureters due to the paucity of intraperitoneal fat. A heavily calcified and tortuous abdominal aorta and iliac arteries are seen. There is also moderate common femoral artery vascular calcification present. I see no evidence of abdominal aortic aneurysm. The greatest diameter of the abdominal aorta measures about 2.2 cm in width on coronal image #51. No obvious abnormal retroperitoneal lymphadenopathy is seen. There is no free intraperitoneal air or ventral abdominal wall hernia. The bowel does not appear distended. Again, there is a paucity of intraperitoneal fat. The appendix is not definitely seen within the right lower quadrant, but no definite inflammatory changes are seen at this level to suggest appendicitis. Innumerable diverticula are seen within the sigmoid colon consistent with extensive diverticulosis. I see no findings of diverticulitis. A mild amount of scattered colonic stool is seen. The uterus appears anteflexed. The urinary bladder appears relatively small, but is otherwise unremarkable. No definite enlarged pelvic lymph nodes or free intraperitoneal fluid is seen. The skeleton reveals diffuse demineralization of the bones. No acute fracture or aggressive bone lesion is seen. I again see mild mid lumbar rotary dextroscoliosis and minimal levoscoliosis within the lower mid thoracic spine. Moderate facet joint arthropathy is seen bilaterally at L4-L5, and marked facet joint arthropathy is seen bilaterally at L5-S1. I note moderate to marked multilevel degenerative disc disease from T11-T12 through L3-L4. The degenerative disc disease is most pronounced at L2-L3 and L3-L4 on the left. There is some enlargement of the left L5 transverse process which pseudo-articulates with the upper left side of the sacrum. Impression: 1. There appears to be a nonobstructing stone within the medial aspect of the upper pole of the left kidney. 2. Extensive sigmoid colon diverticulosis without evidence of diverticulitis. I see no findings of bowel obstruction. 3. Paucity of intraperitoneal fat with lack of intravenous or oral contrast makes soft tissue assessment more difficult due to crowding of soft tissue structures. 4. Extensive atherosclerotic vascular disease is seen. 5. Significant hyperinflation of the lung guevara consistent with COPD. Correlate clinically. 6. Skeletal findings, as discussed above.
[2019-11-04] MEDS: Sodium Chloride 0.9% 1000 ML 1,000 ML IV SCH (16:32)
[2019-11-05] MEDS: Ativan 1 MG PO ONE ×2 (05:09→06:57)
[2019-11-05 06:55] VITALS: BP 138/66; PULSE 55; O2SAT 96
--- NOTE | 2019-11-05 09:01 | PCM.DS ---
Discharge Summary Date of Admission: 11/03/19 20:56 Admitting Physician: AMBAR VEE Primary Care Provider: AMBAR VEE Allergies Allergies Sulfa (Sulfonamide Antibiotics) Allergy (Intermediate, Verified 11/03/19 19:24) Hospital Summary - Hospital Course Hospital Course: Chief Complaint Diagnosis CONFUSION, CONSTIPATION, UTI Allergies Allergy/AdvReac Type Severity Reaction Status Date / Time Sulfa (Sulfonamide Allergy Intermediate Verified 11/03/19 19:24 Antibiotics) Vital Signs (Last 24 hours) Temp Pulse Resp BP Pulse Ox 11/05/19 06:55 98.2 F 55 L 16 138/66 96 11/04/19 23:34 97.8 F 60 18 128/68 95 11/04/19 19:52 98.3 F 65 18 120/58 94 L 11/04/19 15:36 98.3 F 58 L 18 114/52 93 L 11/04/19 11:18 98.4 F 58 L 18 99/50 95 11/04/19 09:43 90/47 Home Medications Medication Instructions Recorded Confirmed Last Taken Type Losartan Potassium 25 mg PO DAILY 11/03/19 11/03/19 11/03/19 07:00 History Naloxegol Oxalate [Movantik] 1 tab PO DAILY 11/03/19 11/03/19 11/03/19 07:00 History Current Medications Generic Name Dose Route Start Last Admin Trade Name Freq PRN Reason Stop Dose Admin Acetaminophen 650 mg 11/03/19 21:01 Tylenol 325 Mg PO 12/03/19 21:00 Q4H PRN PRN PAIN, FEVER, HEADACHE Sodium Chloride 1,000 mls @ 50 mls/hr 11/03/19 21:01 11/04/19 16:32 Sodium Chloride 0.9% 1000 Ml IV 12/03/19 21:00 50 mls/hr .Q20H ISA Administration Ceftriaxone Sodium/Dextrose 1 g in 50 mls @ 100 mls/hr 11/04/19 22:00 11/04/19 21:17 Rocephin 1 Gm-D5w 50 Ml Bag IV 12/04/19 09:59 100 mls/hr QPM ISA Administration Losartan Potassium 25 mg 11/04/19 10:00 11/04/19 09:42 Cozaar 50 Mg PO 12/04/19 09:59 Not Given DAILY ISA Miscellaneous Information 1 each 11/04/19 09:30 Medication Intervention PO 12/04/19 09:29 .RN TO CHECK ON ISA Ondansetron HCl 4 mg 11/03/19 21:01 Zofran 4 Mg/2 Ml Vial IV 12/03/19 21:00 Q6H PRN PRN NAUSEA/VOMITING Discontinued Medications Generic Name Dose Route Start Last Admin Trade Name Freq PRN Reason Stop Dose Admin Ceftriaxone Sodium/Dextrose 1 g in 50 mls @ 100 mls/hr 11/03/19 20:14 11/04/19 20:05 Rocephin 1 Gm-D5w 50 Ml Bag IV 11/03/19 20:43 Not Given STAT STA Ceftriaxone Sodium/Dextrose 1 g in 50 mls @ 100 mls/hr 11/04/19 10:00 11/03/19 21:28 Rocephin 1 Gm-D5w 50 Ml Bag IV 12/04/19 09:59 100 mls/hr Q24H10 ISA Administration Ceftriaxone Sodium/Dextrose Confirm 11/03/19 21:26 Rocephin 1 Gm-D5w 50 Ml Bag Administered 11/03/19 21:27 Dose 1 g in 50 mls @ ud IV .STK-MED ONE Lorazepam 1 mg 11/05/19 05:07 11/05/19 06:57 Ativan 1 Mg PO 11/05/19 05:08 Not Given ONCE ONE Intake & Output (Last 24 hours) 11/02/19 11/03/19 11/04/19 11/05/19 11:59 11:59 11:59 11:59 Intake Total 722 1946 Output Total 300 230 Balance 422 1716 Weight 45.9 kg 45.4 kg Microbiology Results (Last 24 hours) 11/03/19 19:59 Urine, Void Urine Culture - Final NO GROWTH Orders (Last 24 hours) Category Date Time Status Ceftriaxone 1 GM/50 ML PREMIX* [ROCEPHIN 1 Gm-D5w 50 ml Med 11/04/19 10:00 Discontinued Bag] 1 g in 50 ml IV Q24H10 Ceftriaxone 1 GM/50 ML PREMIX* [ROCEPHIN 1 Gm-D5w 50 ml Med 11/04/19 22:00 Active Bag] 1 g in 50 ml IV QPM Lorazepam 1 mg [Ativan 1 MG] Med 11/05/19 05:07 Discontinued 1 mg PO ONCE ONE Losartan Potassium 50 mg [Cozaar 50 MG] Med 11/04/19 10:00 Active 25 mg PO DAILY Medication Intervention Med 11/04/19 09:30 Active 1 each PO .RN TO CHECK ON Patient Care Notes (Last 24 hours) 11/05/19 05:15 Nursing Note by Yu Lewis This nurse called and spoke with Dr. Vee to report that patient was wandering the hallways, becoming agressive verbally towards staff, and agitated. Order received for one time dose of ativan. This nurse went to administer ativan, but patient had called her son who talked her into going back to her r oom and relaxing. Ativan not administered at this time due to patient calming down. Initialized on 11/05/19 05:15 - END OF NOTE 11/04/19 09:37 Case Management Note by Elin Dunaway S/W SON COLETTE- HE REPORTS PATIENT IS SAFE AT HOME. HE HAS TAKEN AWAY HER KEYS. HE DENIES ANY NEED FOR ANY NEW SERVICES OR EQUIPMENT. PATIENT IS INDEPENDENT AT HOME. PLANS FOR PATIENT TO RETURN HOME AT TIME OF DC Initialized on 11/04/19 09:37 - END OF NOTE 11/04/19 09:20 (created 11/04/19 10:53) Case Management Note by Alva Calixto DR. ROUNDED AND EVALUATED, PLAN TO CONTINUE IVF AND IV ABX, LIKELY HOME WITH SON TOMORROW. DR. VEE LEFT MESSAGE ON SON'S VOICEMAIL TO DISCUSS PLAN OF CARE. WILL FOLLOW FOR ALL DC NEEDS. Initialized on 11/04/19 10:53 - END OF NOTE - Vitals & Intake/Output Vital Signs: Vital Signs Temperature 98.2 F 11/05/19 06:55 Pulse Rate 55 L 11/05/19 06:55 Respiratory Rate 16 11/05/19 06:55 Blood Pressure 138/66 11/05/19 06:55 O2 Sat by Pulse Oximetry 96 11/05/19 06:55 Intake & Output: Intake & Output 09/22/20 09/23/20 09/24/20 09/25/20 11:59 11:59 11:59 11:59 Intake Total 722 1946 Output Total 300 230 Balance 422 1716 Weight 45.9 kg 45.4 kg - Lab Result Diagrams: 11/03/19 19:39 11/03/19 19:39 Micro Results-Entire Visit: Microbiology 11/03/19 19:59 Urine Culture - Final Urine, Void NO GROWTH - Radiology Exams Ordered Rad Exams-Entire Visit: Radiology Procedures Category Date Time Status ABDOMEN AND PELVIS W/0 CONTRAS [CT] Stat Exams 11/03/19 19:06 Completed Discharge Exam General Appearance: no apparent distress, alert Neurologic Exam: alert, oriented x 3, cooperative, normal mood/affect, nml cerebellar function, sensation nml, No motor deficits Eye Exam: PERRL, EOMI, eyes nml inspection Ears, Nose, Throat Exam: normal ENT inspection, pharynx normal, moist mucous membranes Neck Exam: normal inspection, non-tender, supple, full range of motion Respiratory Exam: normal breath sounds, lungs clear, No respiratory distress Cardiovascular Exam: regular rate/rhythm, normal heart sounds Gastrointestinal/Abdomen Exam: soft, No tenderness, No mass Pelvic Exam: deferred Rectal Exam: deferred Back Exam: normal inspection, normal range of motion, No CVA tenderness, No vertebral tenderness Extremity Exam: normal inspection, normal range of motion Skin Exam: normal color, warm, dry Final Diagnosis/Problem List - Final Discharge Diagnosis/Problem (1) UTI (urinary tract infection) Current Visit: Yes Status: Resolved Code(s): N39.0 - URINARY TRACT INFECTION, SITE NOT SPECIFIED (2) Confusion Current Visit: Yes Status: Acute Code(s): R41.0 - DISORIENTATION, UNSPECIFIED (3) Constipation Current Visit: Yes Status: Acute Code(s): K59.00 - CONSTIPATION, UNSPECIFIED (4) Hyponatremia Current Visit: Yes Status: Acute Code(s): E87.1 - HYPO-OSMOLALITY AND HYPONATREMIA - Discharge Discharge Date: 11/05/19 Disposition: Home, Self-Care Condition: Stable Prescriptions: New Sertraline HCl 50 mg [Zoloft 50 mg Tablet] 50 mg PO HS #30 tab Ciprofloxacin [Cipro 500 MG] 500 mg PO BID #10 tablet Continue Losartan Potassium 25 mg PO DAILY Naloxegol Oxalate [Movantik] 1 tab PO DAILY Follow up with: NANDA,AMBAR, MD [Primary Care Provider] - 11/12/19 9:45 am (at [facility] )
[2019-11-05] MEDS: Cozaar 50 MG PO SCH (09:46)
== END 2019-11-05 10:40 | disposition home or self-care (01) ==
LOC: ED 18:59 → MED SURG 20:56 → OBSVTOIN 20:56 → INTOOBSV 20:56
PROVIDERS: ADMIT General Practice; ATTEND General Practice
DX: N39.0 Urinary tract infection, site not specified (principal); K59.00 Constipation, unspecified; R41.0 Disorientation, unspecified; E87.1 Hypo-osmolality and hyponatremia; I10 Essential (primary) hypertension; Z79.899 Other long term (current) drug therapy
CPT/HCPCS: 36000; 36415; 74176; 80053; 81001; 82150; 83605; 83690; 85025; 87086; 99285; G0378; J0696; A9270-GY

== ENCOUNTER 2020-01-04 11:57 | Inpatient (IN) | payer MEDICARE, OTHER ==
[2020-01-04] MEDS ORDERED: Sodium Chloride 0.9% 1000 ML 1,000 ML IV SCH (12:15)
[2020-01-04] MEDS ORDERED: Sodium Chloride 0.9% 1000 ML 1,000 ML ONE (12:22)
--- NOTE | 2020-01-04 12:23 | ERPHSYRPT ---
- History of Present Illness Time Seen by Provider: 01/04/20 12:00 Source: patient Patient Subjective Stated Complaint: EMS states "She has not been feeling well for a couple of days. Her son that lives with her had covid 2 weeks ago but she has never been tested. Her O2 sats were 80 on 6 L NC, they went up on a non rebreather.". PT states "I do not feel well." Triage Nursing Assessment: Pt presented via medic 1 and placed in room 7. Pt alert and oriented X 3, skin pwd. Pt able to speak in clear full sentences pt in no aparrent respiratory distress. Pt has dry mucus membranes. Physician History: Patient is an 84-year-old female presents to our ED via EMS for evaluation of feeling unwell. Patient states she began to feel unwell 2 days ago. Patient is concerned she may have Covid. Patient states her son, who lives with our patient, tested positive for Covid 2 weeks ago. Patient has not been tested for Covid. Patient son patient is experiencing generalized malaise and weakness. No nausea or vomiting. No diarrhea. No chest pain or shortness of breath. EMS reports patient was hypoxic upon their initial evaluation. O2 saturation was 80% on 2 L. They increased the oxygen via nasal cannula. Patient remained relatively hypoxic and she been put on a nonrebreather. Symptoms are mild to moderate in intensity. No specific worsening or improving factors. No associated trauma. No fever. No hematuria or dysuria. Patient voices no other complaints at this time. Timing/Duration: day(s) (Days) Severity: moderate Modifying Factors: Improves With: nothing Associated Symptoms: No nausea, No vomiting, No abdominal pain, No shortness of breath, No heartburn, No diaphoresis, No cough, No chills, No chest pain, No fever, No headaches, No loss of appetite, No malaise, No syncope, No seizure Allergies/Adverse Reactions: Sulfa (Sulfonamide Antibiotics) Allergy (Intermediate, Verified 11/03/19 19:24) Home Medications: Losartan Potassium 25 mg PO DAILY 11/03/19 [History] Hx Tetanus, Diphtheria Vaccination/Date Given: Yes Hx Influenza Vaccination/Date Given: No Hx Pneumococcal Vaccination/Date Given: No Immunizations Up to Date: Yes Travel Risk - International Travel Have you traveled outside of the country in past 3 weeks: No - Coronavirus Screening Are you exhibiting any of the following symptoms?: Yes Symptoms: Shortness of Breath Close contact with a COVID-19 positive Pt in past 14-21 Days: Yes - Review of Systems Constitutional: No Symptoms, No Fever, No Chills Eyes: No Symptoms Ears, Nose, & Throat: No Symptoms Respiratory: No Symptoms, No Cough, No Dyspnea Cardiac: No Symptoms, No Chest Pain, No Edema, No Syncope Abdominal/Gastrointestinal: No Symptoms, No Abdominal Pain, No Nausea, No Vomiting, No Diarrhea Genitourinary Symptoms: No Symptoms, No Dysuria Musculoskeletal: No Symptoms, No Back Pain, No Neck Pain Skin: No Symptoms, No Rash Neurological: No Symptoms, No Dizziness, No Focal Weakness, No Sensory Changes Psychological: No Symptoms Endocrine: No Symptoms Hematologic/Lymphatic: No Symptoms Immunological/Allergic: No Symptoms All Other Systems: Reviewed and Negative - Past Medical History Pertinent Past Medical History: Yes Neurological History: No Pertinent History ENT History: Cataracts Cardiac History: Hypertension Respiratory History: No Pertinent History Endocrine Medical History: No Pertinent History Musculoskeletal History: No Pertinent History GI Medical History: No Pertinent History History: No Pertinent History Psycho-Social History: No Pertinent History Female Reproductive Disorders: No Pertinent History - Past Surgical History Past Surgical History: Yes Neuro Surgical History: No Pertinent History Cardiac: No Pertinent History Respiratory: No Pertinent History Gastrointestinal: No Pertinent History Genitourinary: No Pertinent History Musculoskeletal: Other Female Surgical History: Section Other Surgical History: 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 - Social History Smoking Status: Current every day smoker How long have you smoked: years Exposure to second hand smoke: Yes Drug Use: none Patient Lives Alone: No - Nursing Vital Signs Nursing Vital Signs: Initial Vital Signs Temperature 98.6 F 01/04/20 11:59 Respiratory Rate 22 01/04/20 11:59 Pain Scale Pain Intensity 0 - Physical Exam General Appearance: no apparent distress, alert Eye Exam: PERRL/EOMI, eyes nml inspection Ears, Nose, Throat Exam: normal ENT inspection, TMs normal, pharynx normal, moist mucous membranes Neck Exam: normal inspection, non-tender, supple, full range of motion Respiratory Exam: normal breath sounds, lungs clear, other (Appears to be in mild respiratory distress.), No respiratory distress Cardiovascular Exam: regular rate/rhythm, normal heart sounds, normal peripheral pulses Gastrointestinal/Abdomen Exam: soft, normal bowel sounds, No tenderness, No mass Back Exam: normal inspection, normal range of motion, No CVA tenderness, No vertebral tenderness Extremity Exam: normal inspection, normal range of motion, pelvis stable Neurologic Exam: alert, oriented x 3, cooperative, normal mood/affect, nml cereb ellar function, nml station & gait, sensation nml, No motor deficits Skin Exam: normal color, warm, dry, No rash Lymphatic Exam: No adenopathy - Course Nursing assessment & vital signs reviewed: Yes EKG Interpreted by Me: RATE (60), Sinus Rhythm, NORMAL AXIS, NORMAL INTERVALS - Radiology Exams Chest X-ray Interpretation: Teleradiologist Report (Hyperinflated lungs. Lungs are clear. No cardiomegaly. Bony thorax intact with osteopenia. Mild degenerative changes. No acute findings.) Ordered Tests: Active Orders 24 hr Category Date Time Status Set Up Worker STAT Care 01/04/20 12:04 Active EKG-ER Only STAT Care 01/04/20 12:03 Active IV Insertion STAT Care 01/04/20 12:03 Active Pulse Oximetry (ED) STAT Care 01/04/20 12:03 Active CHEST 1 VIEW (PORTABLE) Stat Exams 01/04/20 12:04 Completed CHEST WITH CONTRAST [CT] Stat Exams 01/04/20 13:29 Completed BLOOD CULTURE Stat Lab 01/04/20 12:52 Received CBC W DIFF Stat Lab 01/04/20 12:52 Completed CMP Stat Lab 01/04/20 12:52 Completed D-DIMER QUANTITATIVE Stat Lab 01/04/20 12:52 Completed INFLUENZA A+B VITO Stat Lab 01/04/20 13:03 Completed Lactic Acid Stat Lab 01/04/20 12:03 Completed MAGNESIUM Stat Lab 01/04/20 12:52 Completed TROPONIN Q3H Lab 01/04/20 12:52 Completed TROPONIN Q3H Lab 01/05/20 00:15 Ordered UA W/RFX UR CULTURE Stat Lab 01/04/20 12:04 Ordered Transfer Order Routine Transfer 01/04/20 Ordered Medication Summary Generic Name Dose Route Start Last Admin Trade Name Freq PRN Reason Stop Dose Admin Sodium Chloride 1,000 mls @ 50 mls/hr 01/04/20 12:15 01/04/20 12:23 Sodium Chloride 0.9% 1000 Ml IV 02/03/20 12:14 50 mls/hr .Q20H ISA Administration Discontinued Medications Generic Name Dose Route Start Last Admin Trade Name Juan PRN Reason Stop Dose Admin Dexamethasone Sodium Phosphate 8 mg 01/04/20 16:14 01/04/20 16:19 Decadron 10mg Inj. IV 01/04/20 16:15 8 mg STAT ONE Administration Dexamethasone Sodium Phosphate Confirm 01/04/20 16:18 Decadron 10mg Inj. Administered 01/04/20 16:19 Dose 10 mg .ROUTE .STK-MED ONE Lab/Rad Data: Laboratory Result Diagrams 01/04/20 12:52 01/04/20 12:52 Laboratory Results 01/04/20 01/04/20 01/04/20 Range/Units 13:03 13:03 12:52 WBC (4.0-10.5) K/mm3 RBC (4.1-5.4) M/mm3 Hgb (12.0-16.0) gm/dl Hct (35-47) % MCV (78-100) fl MCH (26-32) pg MCHC (32-36) g/dl RDW (11.5-14.0) % Plt Count (150-450) K/mm3 MPV (7.5-11.0) fl Gran % (36.0-66.0) % Eos # (Auto) (0-0.5) Absolute Lymphs (auto) (1.0-4.6) Absolute Monos (auto) (0.0-1.3) Lymphocytes % (24.0-44.0) % Monocytes % (0.0-12.0) % Eosinophils % (0.00-5.0) % Basophils % (0.0-0.4) % Absolute Granulocytes (1.4-6.9) Basophils # (0-0.4) D-Dimer (215-500) ng/mL Sodium (137-145) mmol/L Potassium (3.5-5.1) mmol/L Chloride (98-107) mmol/L Carbon Dioxide (22-30) mmol/L Anion Gap (5-15) MEQ/L BUN (7-17) mg/dL Creatinine (0.52-1.04) mg/dL Estimated GFR ML/MIN Glucose (74-106) mg/dL Lactic Acid (0.4-2.0) Calcium (8.4-10.2) mg/dL Magnesium (1.6-2.3) mg/dL Total Bilirubin (0.2-1.3) mg/dL AST (14-36) U/L ALT (0-35) U/L Alkaline Phosphatase (38-126) U/L Troponin I 0.078 H* (0.000-0.034) ng/mL Serum Total Protein (6.3-8.2) g/dL Albumin (3.5-5.0) g/dL Influenza Type A Ag NEGATIVE (NEGATIVE) Influenza Type B Ag NEGATIVE (NEGATIVE) SARS-CoV-2 (PCR) POSITIVE A (NEGATIVE) 01/04/20 01/04/20 01/04/20 Range/Units 12:52 12:52 12:52 WBC 3.6 L (4.0-10.5) K/mm3 RBC 4.01 L (4.1-5.4) M/mm3 Hgb 13.8 (12.0-16.0) gm/dl Hct 40.9 (35-47) % MCV 102.0 H (78-100) fl MCH 34.4 H (26-32) pg MCHC 33.7 (32-36) g/dl RDW 13.2 (11.5-14.0) % Plt Count 193 (150-450) K/mm3 MPV 10.2 (7.5-11.0) fl Gran % 67.4 H (36.0-66.0) % Eos # (Auto) 0 (0-0.5) Absolute Lymphs (auto) 0.39 L (1.0-4.6) Absolute Monos (auto) 0.77 (0.0-1.3) Lymphocytes % 11.0 L (24.0-44.0) % Monocytes % 21.6 H (0.0-12.0) % Eosinophils % 0.0 (0.00-5.0) % Basophils % 0.0 (0.0-0.4) % Absolute Granulocytes 2.40 (1.4-6.9) Basophils # 0 (0-0.4) D-Dimer 1482 H* (215-500) ng/mL Sodium 136 L (137-145) mmol/L Potassium 4.6 (3.5-5.1) mmol/L Chloride 102 (98-107) mmol/L Carbon Dioxide 29 (22-30) mmol/L Anion Gap 10.1 (5-15) MEQ/L BUN 42 H (7-17) mg/dL Creatinine 1.19 H (0.52-1.04) mg/dL Estimated GFR 45.8 ML/MIN Glucose 102 (74-106) mg/dL Lactic Acid (0.4-2.0) Calcium 8.9 (8.4-10.2) mg/dL Magnesium 2.3 (1.6-2.3) mg/dL Total Bilirubin 0.70 (0.2-1.3) mg/dL AST 157 H (14-36) U/L ALT 47 H (0-35) U/L Alkaline Phosphatase 51 (38-126) U/L Troponin I (0.000-0.034) ng/mL Serum Total Protein 7.0 (6.3-8.2) g/dL Albumin 3.8 (3.5-5.0) g/dL Influenza Type A Ag (NEGATIVE) Influenza Type B Ag (NEGATIVE) SARS-CoV-2 (PCR) (NEGATIVE) 01/04/20 Range/Units 12:03 WBC (4.0-10.5) K/mm3 RBC (4.1-5.4) M/mm3 Hgb (12.0-16.0) gm/dl Hct (35-47) % MCV (78-100) fl MCH (26-32) pg MCHC (32-36) g/dl RDW (11.5-14.0) % Plt Count (150-450) K/mm3 MPV (7.5-11.0) fl Gran % (36.0-66.0) % Eos # (Auto) (0-0.5) Absolute Lymphs (auto) (1.0-4.6) Absolute Monos (auto) (0.0-1.3) Lymphocytes % (24.0-44.0) % Monocytes % (0.0-12.0) % Eosinophils % (0.00-5.0) % Basophils % (0.0-0.4) % Absolute Granulocytes (1.4-6.9) Basophils # (0-0.4) D-Dimer (215-500) ng/mL Sodium (137-145) mmol/L Potassium (3.5-5.1) mmol/L Chloride (98-107) mmol/L Carbon Dioxide (22-30) mmol/L Anion Gap (5-15) MEQ/L BUN (7-17) mg/dL Creatinine (0.52-1.04) mg/dL Estimated GFR ML/MIN Glucose (74-106) mg/dL Lactic Acid 1.2 (0.4-2.0) Calcium (8.4-10.2) mg/dL Magnesium (1.6-2.3) mg/dL Total Bilirubin (0.2-1.3) mg/dL AST (14-36) U/L ALT (0-35) U/L Alkaline Phosphatase (38-126) U/L Troponin I (0.000-0.034) ng/mL Serum Total Protein (6.3-8.2) g/dL Albumin (3.5-5.0) g/dL Influenza Type A Ag (NEGATIVE) Influenza Type B Ag (NEGATIVE) SARS-CoV-2 (PCR) (NEGATIVE) - Progress Progress: improved Discussed with : Other (delmy) Will see patient in: hospital (observation) Counseled pt/family regarding: lab results, diagnosis, rad results - Departure Departure Disposition: In-patient Admission Clinical Impression: COVID-19, Hypoxia, Emphysema lung, Granulomatous disease Condition: Stable Critical Care Time: No Referrals: AMBAR VEE MD [Primary Care Provider] - Instructions: Chronic Obstructive Pulmonary Disease
--- NOTE | 2020-01-04 12:36 | XRAY ---
Indication: Pneumonia. Comparison: May 10, 2009. Portable chest rotated/side bent and remains hyperinflated and clear. Heart is not enlarged. Bony thorax intact again with osteopenia and mild degenerative changes. No new/acute findings.
[2020-01-04 13:27] LABS: Basophil (Absolute #) 0 (0-0.4); Eosinophil (Absolute #) 0 (0-0.5); Hematocrit 40.9 % (35-47); Hemoglobin 13.8 gm/dl (12.0-16.0); Lymphocyte (Absolute #) 0.39 (1.0-4.6); Mean Corpuscular Hemoglobin 34.4 pg (26-32); Mean Corpuscular Hgb Concent. 33.7 g/dl (32-36); Mean Platelet Volume 10.2 fl (7.5-11.0); Monocyte (Absolute #) 0.77 (0.0-1.3); Monocytes % 21.6 % (0.0-12.0); Neutrophil % 67.4 % (36.0-66.0); Platelet Count 193 K/mm3 (150-450); Red Blood Count 4.01 M/mm3 (4.1-5.4); Red Cell Distribution Width 13.2 % (11.5-14.0); White Blood Count 3.6 K/mm3 (4.0-10.5)
[2020-01-04 13:31] LABS: ALBUMIN 3.8 g/dL (3.5-5.0); ANION GAP 10.1 MEQ/L (5-15); BILIRUBIN,TOTAL 0.7 mg/dL (0.2-1.3); Calcium 8.9 mg/dL (8.4-10.2); Creatinine 1 1.19 mg/dL (0.52-1.04); EST GLOMERULAR FILTRATION RATE 45.8 ML/MIN; MAGNESIUM 2.3 mg/dL (1.6-2.3); Potassium 4.6 mmol/L (3.5-5.1)
[2020-01-04 13:41] LABS: INFLUENZA A NEGATIVE (NEGATIVE); INFLUENZA B NEGATIVE (NEGATIVE)
--- NOTE | 2020-01-04 15:34 | XRAY ---
Indication: Elevated d-dimer. Multiple contiguous axial images obtained through the chest using 80 cc Isovue 370 contrast and PE protocol. Comparison: None Patient's renal GFR is 46. Ordering clinician Dr. Hubbard was made aware of this and requested CT PE exam be performed. There is good opacification of the pulmonary arteries to include the lobar and segmental branches. No pulmonary embolus. Heart is not enlarged. Aorta is mildly arteriosclerotic without aneurysm/dissection. No pathologic mediastinal/hilar lymphadenopathy. Lungs demonstrate diffuse pulmonary emphysema with scattered fibrosis/scarring greatest in both lower lobes. No suspicious pulmonary mass/nodule, infiltrate, or effusion. Bony thorax intact with osteopenia, minimal degenerative changes throughout the spine, and mild levoscoliosis. Limited upper abdomen demonstrates hepatic/splenic calcified granulomas and previous CT proven 2.4 cm left adrenal adenoma. Impression: 1. Negative pulmonary embolus. No acute cardiopulmonary abnormalities. 2. Diffuse pulmonary emphysema with scattered fibrosis/scarring. 3. Incidental left adrenal adenoma, chronic bony findings, and old granulomatous disease.
[2020-01-04] MEDS ORDERED: DECADRON 10MG INJ. IV ONE (16:14)
[2020-01-04] MEDS ORDERED: DECADRON 10MG INJ. ONE (16:18)
[2020-01-04 17:05] LABS: Slide Review 1 YES
[2020-01-04] MEDS: VENTOLIN COMMON CANISTER IH PRN (20:24)
[2020-01-04] MEDS ORDERED: REMDESIVIR 200 MG in Sodium Chloride 0.9% 250 ML 250 ML IV ONE (21:00)
[2020-01-04] MEDS: ENOXAPARIN SODIUM SQ SCH (22:13)
[2020-01-05] MEDS: VENTOLIN COMMON CANISTER IH PRN (00:40)
[2020-01-05 03:28] LABS: Appearance SLIGHTLY CLOUDY (CLEAR); Bacteria RARE /HPF (NEGATIVE); Bilirubin NEGATIVE (NEGATIVE); Blood LARGE Ery/ul (0-5); Glucose NEGATIVE (NEGATIVE); Ketones NEGATIVE (NEGATIVE); Leukocyte Esterase NEGATIVE (NEGATIVE); Mucus SLIGHT /HPF (NEGATIVE); Nitrite NEGATIVE (NEGATIVE); Protein,Urine Dip 30 (Negative); Specific Gravity 1.045 (1.005-1.025); Urobilinogen NEGATIVE mg/dL (0-1)
[2020-01-05 05:35] LABS: Hematocrit 41.6 % (35-47); Hemoglobin 13.5 gm/dl (12.0-16.0); Mean Cell Volume 102.7 fl (78-100); Mean Corpuscular Hemoglobin 33.3 pg (26-32); Mean Corpuscular Hgb Concent. 32.5 g/dl (32-36); Mean Platelet Volume 9.9 fl (7.5-11.0); Platelet Count 193 K/mm3 (150-450); Red Blood Count 4.05 M/mm3 (4.1-5.4); Red Cell Distribution Width 13.2 % (11.5-14.0); White Blood Count 2.5 K/mm3 (4.0-10.5)
[2020-01-05 06:10] LABS: BAND 2 % (0.0-2.0); Lymphocytes 16 % (24-44); Monocyte 15 % (0.0-12.0); Neutrophils 67 % (36.0-66.0); Total Cells Counted 100
[2020-01-05 06:12] LABS: Platelet Estimate NORMAL (NORMAL)
[2020-01-05 06:26] LABS: ALBUMIN 3.2 g/dL (3.5-5.0); BLOOD UREA NITROGEN 41 mg/dL (7-17); CHLORIDE 105 mmol/L (98-107); Calcium 8.6 mg/dL (8.4-10.2); Carbon Dioxide 31 mmol/L (22-30); Creatinine 1 0.92 mg/dL (0.52-1.04); EST GLOMERULAR FILTRATION RATE > 60.0 ML/MIN; Glucose 100 mg/dL (74-106); Potassium 4.9 mmol/L (3.5-5.1); SGOT/AST 208 U/L (14-36); SGPT/ALT 61 U/L (0-35); SODIUM 139 mmol/L (137-145); Total Protein 5.9 g/dL (6.3-8.2)
[2020-01-05 06:55] LABS: ALKALINE PHOSPHATASE 43 U/L (38-126)
--- NOTE | 2020-01-05 08:17 | HP ---
CHIEF COMPLAINT: Shortness of breath. HISTORY OF PRESENT ILLNESS: The patient presented to the emergency room. She presently cannot tell me why she came in but I think it is because she was short of breath. She tested positive for COVID and was markedly hypoxic. The O2 was in the 50's. Her breathing was easy and normal looking apparently and they ended up putting her on rebreather at 100% to get her oxygen up to 90. She also had some bradycardia at 49. She denied any chest pain. She states she has been smoking a pack a day for as long as she can remember but she does not inhale. Her history also was gotten from family. She states she just does not feel well. O2 surprisingly did get up to 80 on 6 liters and then was placed on nonrebreather. It did not make her feel any better. She said she really does not feel very bad. She states she has not had any abdominal pain, diarrhea, cramping. No chest pain. This probably has been going on she thinks for a day or two. She is not really for sure. Her son did test positive for COVID a week ago. She thinks he did not go to the hospital. MEDICATIONS: The patient takes losartan one pill a day unknown milligrams. ALLERGIES: SULFA. PAST MEDICAL HISTORY: Hypertension. REVIEW OF SYSTEMS: RESPIRATORY: Respiratory history she states she does not have any. ENDOCRINE: No history of diabetes or thyroid disease. MUSCULOSKELETAL: The patient does ambulate slowly. She states she has no pain in her back or legs. GI: No problems with bowel movements she states. She does not know if she has lost weight. : No problems urinating. PSYCHOSOCIAL: The patient states she has no history of depression or anxiety. 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 SOCIAL HISTORY: She does live with her son. I think he is there all the time. I am going to have to get a hold of him and get some more history. PHYSICAL EXAMINATION: The patient is in no distress. She is an appropriate 84 year old lady who is cachectic and looks chronically ill. HEENT: Pupils equal and reactive to light. NECK: JVD to the angle of the jaw. No nodes or masses. CHEST: Crackles bilateral. CVS: Regular rate although she was bradycardic. Right now she is running in the 80's. ABDOMEN: Scaphoid, thin. No masses. EXTREMITIES: Thin, cold extremities, not cyanotic particularly except for the fingers. LAB DATA AND TESTS: The patient's blood work is normal except for the COVID positive, D-dimer being elevated to 1500. Chest x-ray showed emphysema. IMPRESSION: 1) COVID. 2) Chronic hypoxia probably increased hypoxia due to COVID. 3) Elevated D-dimer due to COVID. 4) Minimally elevated troponin probably due to COVID. 5) Heavy smoking history. PLAN: The patient will be treated with oxygen, Remdesivir, Decadron, low dose Lovenox. I want to clarify.
[2020-01-05] MEDS: Decadron 4 MG INJ IV SCH ×3 (09:30→21:12)
[2020-01-05] MEDS: ENOXAPARIN SODIUM SQ SCH ×2 (10:30→21:11)
[2020-01-05 12:02] LABS: Hematocrit 44.3 % (35-47); Hemoglobin 14.1 gm/dl (12.0-16.0); Mean Cell Volume 107.8 fl (78-100); Mean Corpuscular Hemoglobin 34.3 pg (26-32); Mean Corpuscular Hgb Concent. 31.8 g/dl (32-36); Mean Platelet Volume 10.4 fl (7.5-11.0); Platelet Count 169 K/mm3 (150-450); Red Blood Count 4.11 M/mm3 (4.1-5.4); Red Cell Distribution Width 13.5 % (11.5-14.0); White Blood Count 2.7 K/mm3 (4.0-10.5)
[2020-01-05] MEDS: Cozaar 50 MG PO SCH (12:32)
[2020-01-05 13:19] LABS: ANION GAP 10.4 MEQ/L (5-15); CHLORIDE 107 mmol/L (98-107); Carbon Dioxide 23 mmol/L (22-30); Potassium 4.2 mmol/L (3.5-5.1); SODIUM 137 mmol/L (137-145)
[2020-01-05 13:25] LABS: Vitamin B12 > 1000 pg/mL (239-931)
[2020-01-05 14:04] LABS: Slide Review YES
[2020-01-05] MEDS ORDERED: Sodium Chloride 0.9% 100 ML IVPB 100 ML IV ONE (20:57)
[2020-01-05] MEDS ORDERED: REMDESIVIR IV ONE (20:57)
[2020-01-05] MEDS: REMDESIVIR 100 MG in Sodium Chloride 0.9% 100 ML IVPB 100 ML IV SCH (21:09)
[2020-01-06] MEDS: Cozaar 50 MG PO SCH (10:59)
[2020-01-06] MEDS: Decadron 4 MG INJ IV SCH ×2 (11:00→21:49)
[2020-01-06] MEDS: ENOXAPARIN SODIUM SQ SCH ×2 (11:01→21:49)
[2020-01-06] MEDS: REMDESIVIR 100 MG in Sodium Chloride 0.9% 100 ML IVPB 100 ML IV SCH (20:07)
[2020-01-07 06:20] LABS: INR 1.11 (0.8-3.0); PROTIME 12.6 SECONDS (9.95-12.35)
[2020-01-07 06:27] LABS: ALBUMIN 3.1 g/dL (3.5-5.0); ALKALINE PHOSPHATASE 41 U/L (38-126); ANION GAP 6.2 MEQ/L (5-15); BLOOD UREA NITROGEN 29 mg/dL (7-17); CHLORIDE 105 mmol/L (98-107); Calcium 8.6 mg/dL (8.4-10.2); Carbon Dioxide 30 mmol/L (22-30); Creatinine 1 0.59 mg/dL (0.52-1.04); EST GLOMERULAR FILTRATION RATE > 60.0 ML/MIN; Glucose 107 mg/dL (74-106); Potassium 4.2 mmol/L (3.5-5.1); SGOT/AST 119 U/L (14-36); SGPT/ALT 52 U/L (0-35); SODIUM 137 mmol/L (137-145); Total Protein 5.8 g/dL (6.3-8.2)
[2020-01-07] MEDS: Cozaar 50 MG PO SCH (10:58)
[2020-01-07] MEDS: Decadron 4 MG INJ IV SCH (10:58)
[2020-01-07] MEDS: ENOXAPARIN SODIUM SQ SCH (10:59)
[2020-01-07 11:30] VITALS: O2SAT 98
[2020-01-07 13:17] VITALS: BP 125/64; PULSE 45
== END 2020-01-07 14:33 | disposition home or self-care (01) | DRG 179 ==
LOC: ED 11:57 → MED SURG 18:20 → OBSVTOIN 01-05 08:14
PROVIDERS: ADMIT Family Medicine; ATTEND Family Medicine
DX: U07.1 COVID-19 (principal); I10 Essential (primary) hypertension; R09.02 Hypoxemia; R79.1 Abnormal coagulation profile; F17.210 Nicotine dependence, cigarettes, uncomplicated
CPT/HCPCS: 36000; 36415; 71045; 71260; 80051; 80053; 81001; 82607; 83605; 83735; 84484; 85025; 85027; 85379; 85610; 87040; 87077; 87086; 87186; 87400; 93005; 93041; 93268; 94640; 94760; 94762; 96374; 99285; G0378; U0003; J1100; J1650; A9270-GY